=== PATIENT | female | born 1940 | race African-American/Black ===

== ENCOUNTER 2021-02-07 20:14 | Inpatient (IN) ==
[2021-02-07] MEDS ORDERED: ONDANSETRON 4 MG/2 ML VIAL IV STA (23:38)
[2021-02-07] MEDS ORDERED: SODIUM CHLORIDE 0.9% 1,000 ML IV STA (23:38)
[2021-02-08 01:08] LABS: Basophils % 0.2 % (0.0-0.8); Hemoglobin 14.5 GM/DL (12.0-16.0); Immature Granulocytes % 0.5 %; Immature Granulocytes Absolute 0.07 #; Lymphocytes # 1.6 10*3/uL (1.4-4.0); Mean Corpuscular HGB Conc 33.7 GM/DL (32-36); Mean Corpuscular Volume 87.9 FL (87-102); Mean Platelet Volume 11.8 FL (9.6-12.0); Monocytes % 6.5 % (1.7-12.7); Neutrophils % 80.8 % (38.7-73.9); Platelet Count 334 T/CUMM (130-400); Red Blood Count 4.89 MC/CUMM (3.8-5.5); Red Cell Distribution Width 13.4 % (9.3-17.3); White Blood Count 13.3 T/CUMM (4-12)
[2021-02-08 01:37] LABS: Albumin 4.8 G/DL (3.4-5.0); Amylase 145 U/L (25-115); Bilirubin,Total 1.9 MG/DL (0.20-1.00); Calcium 10.1 MG/DL (8.5-10.1); Potassium 4.5 MMOL/L (3.5-5.1); Total Protein 9.1 G/DL (6.4-8.2)
[2021-02-08] MEDS ORDERED: ONDANSETRON 4 MG/2 ML VIAL IV PRN (04:27)
[2021-02-08] MEDS ORDERED: HYDROmorphone 2 MG/1 ML VIAL IV PRN (04:27)
[2021-02-08] MEDS ORDERED: ACETAMINOPHEN 325 MG TABLET PO PRN (04:27)
[2021-02-08] MEDS ORDERED: SODIUM CHLORIDE 0.9% 1,000 ML IV SCH ×2 (05:00→09:00)
[2021-02-08] MEDS ORDERED: PIPERACILLIN/TAZOBACTAM 3,375 MG in SODIUM CHLORIDE 0.9% 100 ML IV SCH (08:00)
[2021-02-08] MEDS: HYDROmorphone 2 MG/1 ML VIAL IV PRN (09:40)
[2021-02-08] MEDS: ONDANSETRON 4 MG/2 ML VIAL IV PRN ×2 (09:42→18:17)
[2021-02-08] MEDS: PANTOPRAZOLE 40 MG VIAL IV SCH (09:43)
[2021-02-08] MEDS: SODIUM CHLORIDE 0.9% 1,000 ML IV SCH ×3 (10:45→20:24)
[2021-02-08] MEDS ORDERED: ENOXAPARIN 30 MG/0.3 ML SYRINGE SUBCUT SCH (21:00)
[2021-02-09] MEDS: SODIUM CHLORIDE 0.9% 1,000 ML IV SCH ×2 (01:49→08:15)
[2021-02-09] MEDS: ONDANSETRON 4 MG/2 ML VIAL IV PRN ×2 (03:19→09:53)
[2021-02-09] MEDS: HYDROmorphone 2 MG/1 ML VIAL IV PRN ×3 (03:20→21:40)
[2021-02-09 03:36] LABS: Bilirubin,Urine Negative (Negative); Blood, Urine Negative (Negative); Glucose,Urine (UA) Negative (Negative); Hyaline Casts,Urine 1 /LPF (0-3); Ketones,Urine 20 mg/dL (Negative); Mucus,Urine Occasional /LPF (Occasional); Nitrite,Urine Negative (Negative); Protein,Urine Negative; RBC,Urine 4 /HPF (0-4); Squamous Epithelial Cell,Urine Occasional /HPF (0-10); Urine Appearance CLEAR (Clear); Urine Color Yellow (Yellow); Urine Specific Gravity 1.009 (1.001-1.035); Urine Urobilinogen < 2.0 EU/DL (0.2-1.0)
[2021-02-09 04:42] LABS: Basophils % 0.2 % (0.0-0.8); Eosinophils % 0.5 % (0.00-10.9); Hematocrit 30.5 VOL% (35.7-47.0); Hemoglobin 10.1 GM/DL (12.0-16.0); Immature Granulocytes % 0.4 %; Immature Granulocytes Absolute 0.03 #; Lymphocytes # 1.2 10*3/uL (1.4-4.0); Lymphocytes % 14.7 % (21.3-54.2); Mean Corpuscular HGB Conc 33.1 GM/DL (32-36); Mean Corpuscular Volume 91.9 FL (87-102); Mean Platelet Volume 11.8 FL (9.6-12.0); Monocytes % 7.9 % (1.7-12.7); Neutrophils % 76.3 % (38.7-73.9); Platelet Count 203 T/CUMM (130-400); Red Blood Count 3.32 MC/CUMM (3.8-5.5); White Blood Count 8.3 T/CUMM (4-12)
[2021-02-09 05:04] LABS: Calcium 8.4 MG/DL (8.5-10.1); Osmolality,Calculated 301.9 MOS/KG (273-304); Potassium 3.3 MMOL/L (3.5-5.1)
[2021-02-09] MEDS: PANTOPRAZOLE 40 MG VIAL IV SCH (08:12)
[2021-02-09] MEDS: DEXT 5% NACL 0.45% KCL 40 MEQ 40 MEQ/1,000 ML BAG IV SCH ×2 (13:46→21:39)
[2021-02-10] MEDS: HYDROmorphone 2 MG/1 ML VIAL IV PRN ×3 (04:07→23:23)
[2021-02-10] MEDS: ONDANSETRON 4 MG/2 ML VIAL IV PRN ×2 (04:07→16:07)
[2021-02-10] MEDS: DEXT 5% NACL 0.45% KCL 40 MEQ 40 MEQ/1,000 ML BAG IV SCH (04:37)
[2021-02-10 06:09] LABS: Basophils % 0.3 % (0.0-0.8); Eosinophils # 0.1 10*3/uL (0.0-0.87); Eosinophils % 1.1 % (0.00-10.9); Hematocrit 28.8 VOL% (35.7-47.0); Hemoglobin 9.2 GM/DL (12.0-16.0); Immature Granulocytes % 0.3 %; Immature Granulocytes Absolute 0.02 #; Lymphocytes # 1.3 10*3/uL (1.4-4.0); Lymphocytes % 20.1 % (21.3-54.2); Mean Corpuscular HGB Conc 31.9 GM/DL (32-36); Mean Corpuscular Volume 93.2 FL (87-102); Mean Platelet Volume 11.2 FL (9.6-12.0); Monocytes % 10.4 % (1.7-12.7); Neutrophils % 67.8 % (38.7-73.9); Platelet Count 184 T/CUMM (130-400); Red Blood Count 3.09 MC/CUMM (3.8-5.5); Red Cell Distribution Width 14.5 % (9.3-17.3); White Blood Count 6.3 T/CUMM (4-12)
[2021-02-10 06:28] LABS: Calcium 8.2 MG/DL (8.5-10.1); Osmolality,Calculated 302.7 MOS/KG (273-304); Potassium 4.1 MMOL/L (3.5-5.1)
[2021-02-10] MEDS: POTASSIUM CHLORIDE INJ 10 MEQ in DEXTROSE 5% NACL 0.22% 1,000 ML IV SCH ×2 (08:39→16:11)
[2021-02-10] MEDS: PANTOPRAZOLE 40 MG VIAL IV SCH (08:41)
[2021-02-10] MEDS: BISACODYL 5 MG TABLET PO SCH ×2 (08:44→16:08)
[2021-02-10] MEDS: METOCLOPRAMIDE 10 MG/2 ML VIAL IV SCH ×2 (11:24→17:58)
[2021-02-10] MEDS ORDERED: POLYETHYLENE GLYCOL POWDER 255 GM BOTTLE PO ONE (18:00)
[2021-02-10] MEDS ORDERED: MAGNESIUM CITRATE 300 ML BOTTLE PO ONE (21:00)
[2021-02-11] MEDS: METOCLOPRAMIDE 10 MG/2 ML VIAL IV SCH ×4 (00:23→17:39)
[2021-02-11] MEDS: POTASSIUM CHLORIDE INJ 10 MEQ in DEXTROSE 5% NACL 0.22% 1,000 ML IV SCH ×3 (00:23→17:36)
[2021-02-11] MEDS: BISACODYL 5 MG TABLET PO SCH (00:27)
[2021-02-11] MEDS: ONDANSETRON 4 MG/2 ML VIAL IV PRN (06:28)
[2021-02-11 06:51] LABS: Albumin 2.9 G/DL (3.4-5.0); Bilirubin,Direct 0.2 MG/DL (0.0-0.20); Bilirubin,Indirect 1.6 MG/DL (0.0-1.0); Bilirubin,Total 1.8 MG/DL (0.20-1.00)
[2021-02-11 08:00] LABS: Calcium 8.9 MG/DL (8.5-10.1); Osmolality,Calculated 275.5 MOS/KG (273-304); Potassium 4.4 MMOL/L (3.5-5.1)
[2021-02-11] MEDS: PANTOPRAZOLE 40 MG VIAL IV SCH (08:57)
[2021-02-11] MEDS ORDERED: LIDOCAINE 2% 5 ML VIAL ONE (15:42)
[2021-02-11] MEDS ORDERED: propofoL 200 MG/20 ML VIAL IV ONE (15:42)
[2021-02-11] MEDS ORDERED: SODIUM CHLORIDE 0.9% 100 ML IV ONE (15:52)
[2021-02-11] MEDS ORDERED: ePHEDrine 50 MG/ML VIAL ONE (15:52)
[2021-02-11] MEDS ORDERED: PHENYLEPHRINE 10 MG/1 ML VIAL IV ONE (15:54)
[2021-02-11] MEDS ORDERED: SEVOFLURANE 1 UNIT/15 MINUTE INH ONE ×2 (16:14→16:27)
[2021-02-11] MEDS ORDERED: SUCCINYLCHOLINE 200 MG/10 ML VIAL ONE (16:14)
[2021-02-11] MEDS ORDERED: MIDAZOLAM 2 MG/2 ML VIAL ONE (16:20)
[2021-02-11] MEDS: SODIUM CHLORIDE 0.9% 1,000 ML IV SCH (17:07)
[2021-02-11 17:22] LABS: Bacteria,Urine Occasional /HPF (Few); Bilirubin,Urine Negative (Negative); Blood, Urine Negative (Negative); Glucose,Urine (UA) Negative (Negative); Hyaline Casts,Urine 1 /LPF (0-3); Ketones,Urine Negative (Negative); Mucus,Urine Few /LPF (Occasional); Nitrite,Urine Negative (Negative); Protein,Urine Negative; RBC,Urine 1 /HPF (0-4); Squamous Epithelial Cell,Urine Occasional /HPF (0-10); Urine Appearance CLEAR (Clear); Urine Color Yellow (Yellow); Urine Specific Gravity 1.008 (1.001-1.035); Urine Urobilinogen < 2.0 EU/DL (0.2-1.0)
[2021-02-11 17:31] LABS: ABG Base Excess -8.5 MMOL/L (-2.5-2.5); ABG HCO3 17.7 MMOL/L (20-26); ABG PCO2 27.1 MM HG (35-48); ABG PH 7.368 (7.35-7.45)
[2021-02-11] MEDS ORDERED: SODIUM CHLORIDE 0.9% 500 ML IV ONE (19:54)
[2021-02-11] MEDS ORDERED: METOPROLOL TARTRATE 5 MG/5 ML VIAL IV ONE (19:54)
[2021-02-11] MEDS ORDERED: MIDAZOLAM 2 MG/2 ML VIAL IV PRN (20:41)
[2021-02-11] MEDS: cefOXitin 1,000 MG in SODIUM CHLORIDE 0.9% 100 ML IV SCH (21:21)
[2021-02-11] MEDS: HYDROmorphone 2 MG/1 ML VIAL IV PRN (23:04)
[2021-02-11] MEDS ORDERED: PHENYLEPHRINE DRIP 40 MG/250 ML PREMIX IV ONE (23:21)
[2021-02-11] MEDS: PHENYLEPHRINE DRIP 40 MG/250 ML PREMIX IV PRN (23:23)
[2021-02-12 00:10] LABS: Basophils % 0.5 % (0.0-0.8); Hematocrit 40.1 VOL% (35.7-47.0); Hemoglobin 12.1 GM/DL (12.0-16.0); Immature Granulocytes % 0.7 %; Immature Granulocytes Absolute 0.04 #; Lymphocytes # 0.6 10*3/uL (1.4-4.0); Lymphocytes % 10.5 % (21.3-54.2); Mean Corpuscular HGB Conc 30.2 GM/DL (32-36); Mean Corpuscular Volume 100.8 FL (87-102); Mean Platelet Volume 10.8 FL (9.6-12.0); Monocytes % 6.7 % (1.7-12.7); Neutrophils % 81.6 % (38.7-73.9); Platelet Count 126 T/CUMM (130-400); Red Blood Count 3.98 MC/CUMM (3.8-5.5); Red Cell Distribution Width 14.4 % (9.3-17.3)
[2021-02-12] MEDS: METOCLOPRAMIDE 10 MG/2 ML VIAL IV SCH ×4 (00:25→18:12)
[2021-02-12 01:16] LABS: Calcium 7.7 MG/DL (8.5-10.1); Osmolality,Calculated 265.5 MOS/KG (273-304); Potassium 4.5 MMOL/L (3.5-5.1)
[2021-02-12] MEDS ORDERED: MAGNESIUM SULF RIDER 4 GM/100 ML PREMIX IV PRN (01:30)
[2021-02-12] MEDS: MAGNESIUM SULF RIDER 2 GM/50 ML PREMIX IV PRN ×2 (01:42→03:07)
[2021-02-12] MEDS: POTASSIUM CHLORIDE INJ 10 MEQ in DEXTROSE 5% NACL 0.22% 1,000 ML IV SCH ×3 (02:02→18:10)
[2021-02-12 03:11] LABS: Band Neutrophils 7 % (0-10); Lymphocytes 11 % (20-55); Platelet Estimate Adequate; Segmented Neutrophils 79 % (50-85); Total Cells Counted 100
[2021-02-12 03:20] LABS: Macrocytosis 1+; Polychromasia Slight
[2021-02-12] MEDS ORDERED: MIDAZOLAM 100 MG in SODIUM CHLORIDE 0.9% 80 ML IV PRN (03:52)
[2021-02-12 04:18] LABS: ABG HCO3 14.4 MMOL/L (20-26); ABG Oxygen Saturation 99.7 % (95-100); ABG PCO2 25.8 MM HG (35-48); ABG TCO2 11.3 MMOL/L (23-27)
[2021-02-12] MEDS: cefOXitin 1,000 MG in SODIUM CHLORIDE 0.9% 100 ML IV SCH ×3 (05:31→21:13)
[2021-02-12 06:27] LABS: Basophils % 0.1 % (0.0-0.8); Hematocrit 34.2 VOL% (35.7-47.0); Hemoglobin 10.9 GM/DL (12.0-16.0); Immature Granulocytes % 0.7 %; Immature Granulocytes Absolute 0.11 #; Lymphocytes # 1.2 10*3/uL (1.4-4.0); Lymphocytes % 7.3 % (21.3-54.2); Mean Corpuscular HGB Conc 31.9 GM/DL (32-36); Mean Platelet Volume 11.5 FL (9.6-12.0); Monocytes % 3.5 % (1.7-12.7); Neutrophils % 88.4 % (38.7-73.9); Platelet Count 153 T/CUMM (130-400); Red Blood Count 3.64 MC/CUMM (3.8-5.5); Red Cell Distribution Width 14.3 % (9.3-17.3); White Blood Count 16.8 T/CUMM (4-12)
[2021-02-12 06:41] LABS: Calcium 7.8 MG/DL (8.5-10.1)
[2021-02-12 07:04] LABS: Band Neutrophils 13 % (0-10); Lymphocytes 13 % (20-55); Metamyelocytes 2 %; Segmented Neutrophils 64 % (50-85); Total Cells Counted 100
[2021-02-12 07:10] LABS: Hypochromasia Slight
[2021-02-12 07:11] LABS: Microcytosis 1+; Platelet Estimate Adequate
[2021-02-12] MEDS: PHENYLEPHRINE DRIP 40 MG/250 ML PREMIX IV PRN ×2 (07:33→14:05)
[2021-02-12] MEDS: SODIUM CHLORIDE 0.9% 1,000 ML IV SCH (07:55)
[2021-02-12] MEDS: PANTOPRAZOLE 40 MG VIAL IV SCH (10:01)
[2021-02-12] MEDS: INSULIN LISPRO 100 UNIT/ML SUBCUT SCH ×2 (12:51→18:08)
[2021-02-13] MEDS: METOCLOPRAMIDE 10 MG/2 ML VIAL IV SCH ×4 (00:38→18:35)
[2021-02-13] MEDS: INSULIN LISPRO 100 UNIT/ML SUBCUT SCH ×4 (00:38→18:35)
[2021-02-13] MEDS: POTASSIUM CHLORIDE INJ 10 MEQ in DEXTROSE 5% NACL 0.22% 1,000 ML IV SCH ×3 (02:06→20:33)
[2021-02-13] MEDS: PHENYLEPHRINE DRIP 40 MG/250 ML PREMIX IV PRN ×2 (02:07→20:32)
[2021-02-13] MEDS: ONDANSETRON 4 MG/2 ML VIAL IV PRN (04:47)
[2021-02-13] MEDS: cefOXitin 1,000 MG in SODIUM CHLORIDE 0.9% 100 ML IV SCH ×3 (05:31→21:07)
[2021-02-13 06:20] LABS: Basophils % 0.2 % (0.0-0.8); Hematocrit 32.2 VOL% (35.7-47.0); Hemoglobin 10.8 GM/DL (12.0-16.0); Immature Granulocytes % 7.9 %; Immature Granulocytes Absolute 1.91 #; Mean Corpuscular HGB Conc 33.5 GM/DL (32-36); Mean Platelet Volume 12.4 FL (9.6-12.0); Monocytes % 3.4 % (1.7-12.7); Neutrophils % 84.5 % (38.7-73.9); Platelet Count 105 T/CUMM (130-400); Red Blood Count 3.62 MC/CUMM (3.8-5.5); Red Cell Distribution Width 14.5 % (9.3-17.3); White Blood Count 24.2 T/CUMM (4-12)
[2021-02-13 06:41] LABS: Band Neutrophils 10 % (0-10); Lymphocytes 5 % (20-55); Segmented Neutrophils 76 % (50-85); Total Cells Counted 100
[2021-02-13 06:42] LABS: Hypochromasia 1+; Microcytosis 1+; Ovalocytes Slight
[2021-02-13 06:43] LABS: Platelet Estimate Decreased
[2021-02-13 06:46] LABS: Osmolality,Calculated 279.7 MOS/KG (273-304); Potassium 3.2 MMOL/L (3.5-5.1)
[2021-02-13 06:51] LABS: Albumin 2.3 G/DL (3.4-5.0); Calcium 7.9 MG/DL (8.5-10.1); Potassium 3.1 MMOL/L (3.5-5.1); Total Protein 5.3 G/DL (6.4-8.2)
[2021-02-13] MEDS ORDERED: LIDOCAINE 2% 5 ML VIAL ONE (09:34)
[2021-02-13] MEDS ORDERED: ROCURONIUM 50 MG/5 ML VIAL IV ONE (09:34)
[2021-02-13] MEDS ORDERED: SUCCINYLCHOLINE 200 MG/10 ML VIAL ONE (09:34)
[2021-02-13] MEDS ORDERED: propofoL 200 MG/20 ML VIAL IV ONE (09:34)
[2021-02-13] MEDS ORDERED: fentaNYL 100 MCG/2 ML VIAL ONE (09:35)
[2021-02-13] MEDS ORDERED: MIDAZOLAM 2 MG/2 ML VIAL ONE (09:36)
[2021-02-13] MEDS: PANTOPRAZOLE 40 MG VIAL IV SCH (09:40)
[2021-02-13] MEDS: SODIUM CHLORIDE 0.9% 1,000 ML IV SCH (09:57)
[2021-02-13] MEDS ORDERED: ALBUMIN 5% 12.5 GM/250 ML VIAL IV ONE (10:09)
[2021-02-13] MEDS ORDERED: PHENYLEPHRINE 1 MG/10 ML SYRINGE IV ONE (10:34)
[2021-02-13] MEDS ORDERED: NEOSTIGMINE 10 MG/10 ML VIAL ONE (10:56)
[2021-02-13] MEDS ORDERED: GLYCOPYRROLATE 0.4 MG/2 ML VIAL ONE (10:57)
[2021-02-13] MEDS ORDERED: SUGAMMADEX 200 MG/2 ML VIAL IV ONE (11:00)
[2021-02-13 11:50] LABS: ABG Base Excess -7.1 MMOL/L (-2.5-2.5); ABG HCO3 18.5 MMOL/L (20-26); ABG Oxygen Saturation 89.6 % (95-100); ABG PCO2 27.5 MM HG (35-48); ABG PH 7.389 (7.35-7.45); ABG PO2 56.3 MM HG (80-95); Pt O2 Delivery Device Other
[2021-02-13] MEDS ORDERED: SEVOFLURANE 1 UNIT/15 MINUTE INH ONE ×5 (12:30)
[2021-02-13] MEDS: HYDROmorphone 2 MG/1 ML VIAL IV PRN ×3 (12:57→22:06)
[2021-02-14] MEDS: METOCLOPRAMIDE 10 MG/2 ML VIAL IV SCH ×4 (00:31→18:38)
[2021-02-14] MEDS: POTASSIUM CHLORIDE INJ 10 MEQ in DEXTROSE 5% NACL 0.22% 1,000 ML IV SCH ×2 (02:47→05:28)
[2021-02-14] MEDS: cefOXitin 1,000 MG in SODIUM CHLORIDE 0.9% 100 ML IV SCH ×3 (04:26→21:23)
[2021-02-14 04:27] LABS: Basophils # 0.1 10*3/uL (0.0-0.2); Basophils % 0.7 % (0.0-0.8); Eosinophils % 0.1 % (0.00-10.9); Hematocrit 26.7 VOL% (35.7-47.0); Immature Granulocytes % 0.2 %; Immature Granulocytes Absolute 0.03 #; Mean Corpuscular HGB Conc 33.7 GM/DL (32-36); Mean Corpuscular Volume 89.3 FL (87-102); Monocytes % 2.5 % (1.7-12.7); Neutrophils % 89.5 % (38.7-73.9); Platelet Count 58 T/CUMM (130-400); Red Blood Count 2.99 MC/CUMM (3.8-5.5); Red Cell Distribution Width 14.6 % (9.3-17.3); White Blood Count 14.6 T/CUMM (4-12)
[2021-02-14 04:39] LABS: Calcium 7.4 MG/DL (8.5-10.1); Osmolality,Calculated 266.4 MOS/KG (273-304); Potassium 3.5 MMOL/L (3.5-5.1)
[2021-02-14 04:45] LABS: ABG Base Excess -6.9 MMOL/L (-2.5-2.5); ABG HCO3 18.8 MMOL/L (20-26); ABG PCO2 35.7 MM HG (35-48); ABG PH 7.322 (7.35-7.45); ABG TCO2 16.8 MMOL/L (23-27); Allen Test Positive; Pt O2 Delivery Device Ventilator
[2021-02-14 04:47] LABS: Band Neutrophils 1 % (0-10); Lymphocytes 7 % (20-55); Segmented Neutrophils 87 % (50-85); Total Cells Counted 100
[2021-02-14 04:48] LABS: Microcytosis Slight; Platelet Estimate Decreased
[2021-02-14] MEDS: INSULIN LISPRO 100 UNIT/ML SUBCUT SCH ×4 (05:16→17:50)
[2021-02-14] MEDS: SODIUM CHLORIDE 0.9% 1,000 ML IV SCH (06:59)
[2021-02-14] MEDS: PANTOPRAZOLE 40 MG VIAL IV SCH (09:18)
[2021-02-14] MEDS: PHENYLEPHRINE DRIP 40 MG/250 ML PREMIX IV PRN (09:32)
[2021-02-14] MEDS: POTASSIUM CHLORIDE INJ 30 MEQ in LACTATED RINGERS 1,000 ML IV SCH ×2 (10:30→21:23)
[2021-02-14 11:48] LABS: Basophils % 0.2 % (0.0-0.8); Eosinophils % 0.1 % (0.00-10.9); Hematocrit 29.8 VOL% (35.7-47.0); Hemoglobin 9.9 GM/DL (12.0-16.0); Immature Granulocytes % 0.4 %; Immature Granulocytes Absolute 0.06 #; Lymphocytes # 0.9 10*3/uL (1.4-4.0); Lymphocytes % 5.2 % (21.3-54.2); Mean Corpuscular HGB Conc 33.2 GM/DL (32-36); Mean Corpuscular Volume 90.6 FL (87-102); Mean Platelet Volume 12.6 FL (9.6-12.0); Monocytes % 3.5 % (1.7-12.7); Neutrophils % 90.6 % (38.7-73.9); Platelet Count 55 T/CUMM (130-400); Red Blood Count 3.29 MC/CUMM (3.8-5.5); Red Cell Distribution Width 14.7 % (9.3-17.3); White Blood Count 16.7 T/CUMM (4-12)
[2021-02-14 12:09] LABS: Anisocytosis 1+; Band Neutrophils 13 % (0-10); Burr Cells 1+; Lymphocytes 2 % (20-55); Macrocytosis 1+; Platelet Estimate Decreased; Segmented Neutrophils 83 % (50-85); Total Cells Counted 100
[2021-02-14] MEDS: HYDROmorphone 2 MG/1 ML VIAL IV PRN ×2 (13:27→19:37)
[2021-02-15] MEDS: INSULIN LISPRO 100 UNIT/ML SUBCUT SCH ×4 (00:52→18:49)
[2021-02-15] MEDS: METOCLOPRAMIDE 10 MG/2 ML VIAL IV SCH ×2 (01:28→05:36)
[2021-02-15 04:08] LABS: Allen Test Positive
[2021-02-15 04:09] LABS: ABG Base Excess -2.2 MMOL/L (-2.5-2.5); ABG HCO3 21.8 MMOL/L (20-26); ABG Oxygen Saturation 95.9 % (95-100); ABG PH 7.425 (7.35-7.45); ABG PO2 82.7 MM HG (80-95); ABG TCO2 22.9 MMOL/L (23-27)
[2021-02-15 04:54] LABS: Basophils % 0.1 % (0.0-0.8); Eosinophils % 0.1 % (0.00-10.9); Hemoglobin 8.5 GM/DL (12.0-16.0); Immature Granulocytes % 0.4 %; Immature Granulocytes Absolute 0.04 #; Lymphocytes # 0.6 10*3/uL (1.4-4.0); Monocytes % 3.8 % (1.7-12.7); Neutrophils % 89.6 % (38.7-73.9); Red Blood Count 2.84 MC/CUMM (3.8-5.5); Red Cell Distribution Width 14.6 % (9.3-17.3); White Blood Count 9.2 T/CUMM (4-12)
[2021-02-15 05:09] LABS: Platelet Count 36 T/CUMM (130-400)
[2021-02-15 05:14] LABS: Albumin 1.7 G/DL (3.4-5.0); Bilirubin,Direct 0.16 MG/DL (0.0-0.20); Bilirubin,Total 1.1 MG/DL (0.20-1.00); Calcium 8.3 MG/DL (8.5-10.1); Lymphocytes 1 % (20-55); Microcytosis 1+; Osmolality,Calculated 276.4 MOS/KG (273-304); Segmented Neutrophils 93 % (50-85); Total Cells Counted 100; Total Protein 4.7 G/DL (6.4-8.2)
[2021-02-15 05:22] LABS: Platelet Estimate Decreased
[2021-02-15] MEDS: cefOXitin 1,000 MG in SODIUM CHLORIDE 0.9% 100 ML IV SCH ×3 (05:35→21:09)
[2021-02-15] MEDS: SODIUM CHLORIDE 0.9% 1,000 ML IV SCH (06:33)
[2021-02-15] MEDS ORDERED: SODIUM CHLORIDE 0.9% 1,000 ML IV PRN ×2 (06:42→07:05)
[2021-02-15] MEDS: FAMOTIDINE 20 MG/2 ML VIAL IV SCH ×2 (08:00→18:58)
[2021-02-15] MEDS: LACTATED RINGERS 1,000 ML IV SCH ×2 (08:00→19:25)
[2021-02-15] MEDS: POTASSIUM CHLORIDE INJ 30 MEQ in LACTATED RINGERS 1,000 ML IV SCH (08:35)
[2021-02-16 04:47] LABS: Basophils % 0.2 % (0.0-0.8); Eosinophils % 0.2 % (0.00-10.9); Hematocrit 28.1 VOL% (35.7-47.0); Hemoglobin 9.8 GM/DL (12.0-16.0); Immature Granulocytes % 1.6 %; Lymphocytes # 0.7 10*3/uL (1.4-4.0); Lymphocytes % 10.2 % (21.3-54.2); Mean Corpuscular HGB Conc 34.9 GM/DL (32-36); Mean Corpuscular Volume 84.4 FL (87-102); Mean Platelet Volume 10.9 FL (9.6-12.0); Monocytes % 6.7 % (1.7-12.7); Neutrophils % 81.1 % (38.7-73.9); Platelet Count 88 T/CUMM (130-400); Red Blood Count 3.33 MC/CUMM (3.8-5.5); Red Cell Distribution Width 14.3 % (9.3-17.3); White Blood Count 6.5 T/CUMM (4-12)
[2021-02-16] MEDS: LACTATED RINGERS 1,000 ML IV SCH ×3 (04:56→15:50)
[2021-02-16 05:02] LABS: Calcium 8.2 MG/DL (8.5-10.1); Potassium 3.1 MMOL/L (3.5-5.1)
[2021-02-16] MEDS: cefOXitin 1,000 MG in SODIUM CHLORIDE 0.9% 100 ML IV SCH ×3 (05:12→21:11)
[2021-02-16 05:22] LABS: Band Neutrophils 1 % (0-10); Eosinophils 1 % (0-10); Hypochromasia 1+; Lymphocytes 9 % (20-55); Microcytosis 1+; Segmented Neutrophils 81 % (50-85); Total Cells Counted 100
[2021-02-16 05:23] LABS: Platelet Estimate Decreased
[2021-02-16] MEDS: POTASSIUM CHLORIDE RIDER 10 MEQ/100 ML PREMIX IV PRN ×7 (05:36→20:23)
[2021-02-16] MEDS: MAGNESIUM SULF RIDER 2 GM/50 ML PREMIX IV PRN (05:37)
[2021-02-16] MEDS: FAMOTIDINE 20 MG/2 ML VIAL IV SCH ×2 (06:03→18:10)
[2021-02-17] MEDS: LACTATED RINGERS 1,000 ML IV SCH ×3 (02:39→21:35)
[2021-02-17 04:45] LABS: Basophils % 0.3 % (0.0-0.8); Eosinophils % 0.6 % (0.00-10.9); Hematocrit 28.2 VOL% (35.7-47.0); Hemoglobin 9.8 GM/DL (12.0-16.0); Immature Granulocytes % 1.8 %; Immature Granulocytes Absolute 0.12 #; Lymphocytes # 0.7 10*3/uL (1.4-4.0); Mean Corpuscular HGB Conc 34.8 GM/DL (32-36); Mean Corpuscular Volume 84.7 FL (87-102); Mean Platelet Volume 11.1 FL (9.6-12.0); Monocytes % 10.9 % (1.7-12.7); Neutrophils % 75.4 % (38.7-73.9); Platelet Count 68 T/CUMM (130-400); Red Blood Count 3.33 MC/CUMM (3.8-5.5); Red Cell Distribution Width 14.6 % (9.3-17.3); White Blood Count 6.7 T/CUMM (4-12)
[2021-02-17 05:10] LABS: Calcium 8.2 MG/DL (8.5-10.1); Osmolality,Calculated 276.4 MOS/KG (273-304); Potassium 3.7 MMOL/L (3.5-5.1)
[2021-02-17 05:22] LABS: Band Neutrophils 1 % (0-10); Hypochromasia 1+; Lymphocytes 14 % (20-55); Microcytosis 1+; Segmented Neutrophils 73 % (50-85); Total Cells Counted 100
[2021-02-17 05:23] LABS: Platelet Estimate Decreased
[2021-02-17] MEDS: FAMOTIDINE 20 MG/2 ML VIAL IV SCH ×2 (06:12→19:42)
[2021-02-17] MEDS: cefOXitin 1,000 MG in SODIUM CHLORIDE 0.9% 100 ML IV SCH ×3 (06:12→21:35)
[2021-02-18] MEDS: LACTATED RINGERS 1,000 ML IV SCH ×2 (02:05→06:01)
[2021-02-18 04:49] LABS: Basophils % 0.2 % (0.0-0.8); Eosinophils % 0.4 % (0.00-10.9); Hematocrit 28.5 VOL% (35.7-47.0); Hemoglobin 9.5 GM/DL (12.0-16.0); Immature Granulocytes % 0.7 %; Immature Granulocytes Absolute 0.06 #; Lymphocytes # 0.8 10*3/uL (1.4-4.0); Lymphocytes % 9.6 % (21.3-54.2); Mean Corpuscular HGB Conc 33.3 GM/DL (32-36); Mean Corpuscular Volume 85.6 FL (87-102); Mean Platelet Volume 11.9 FL (9.6-12.0); Monocytes % 12.2 % (1.7-12.7); Neutrophils % 76.9 % (38.7-73.9); Red Blood Count 3.33 MC/CUMM (3.8-5.5); Red Cell Distribution Width 14.4 % (9.3-17.3); White Blood Count 8.1 T/CUMM (4-12)
[2021-02-18 04:51] LABS: Platelet Count 75 T/CUMM (130-400)
[2021-02-18 05:14] LABS: Calcium 8.3 MG/DL (8.5-10.1); Osmolality,Calculated 275.4 MOS/KG (273-304); Potassium 3.5 MMOL/L (3.5-5.1)
[2021-02-18 05:15] LABS: Band Neutrophils 3 % (0-10); Hypochromasia 1+; Lymphocytes 6 % (20-55); Microcytosis 1+; Platelet Estimate Decreased; Segmented Neutrophils 87 % (50-85); Total Cells Counted 100
[2021-02-18] MEDS: FAMOTIDINE 20 MG/2 ML VIAL IV SCH ×2 (06:01→18:00)
[2021-02-18] MEDS: cefOXitin 1,000 MG in SODIUM CHLORIDE 0.9% 100 ML IV SCH ×3 (06:01→21:59)
[2021-02-18] MEDS ORDERED: GLUCAGON 1 MG VIAL IM PRN (06:37)
[2021-02-18] MEDS ORDERED: DEXTROSE 50% 25 GM/50 ML VIAL IV PRN (06:37)
[2021-02-18] MEDS: ENOXAPARIN 40 MG/0.4 ML SYRINGE SUBCUT SCH (08:18)
[2021-02-18] MEDS: POTASSIUM CHLORIDE RIDER 10 MEQ/100 ML PREMIX IV PRN ×3 (08:18→10:20)
[2021-02-18] MEDS: DEXT 5% NACL 0.45% KCL 40 MEQ 40 MEQ/1,000 ML BAG IV SCH ×2 (10:32→18:50)
[2021-02-18] MEDS: MIRTAZAPINE 15 MG TABLET PO SCH (21:52)
[2021-02-19] MEDS: cefOXitin 1,000 MG in SODIUM CHLORIDE 0.9% 100 ML IV SCH ×3 (05:01→20:56)
[2021-02-19] MEDS: DEXT 5% NACL 0.45% KCL 40 MEQ 40 MEQ/1,000 ML BAG IV SCH ×2 (05:03→18:10)
[2021-02-19] MEDS: FAMOTIDINE 20 MG/2 ML VIAL IV SCH ×2 (06:20→19:21)
[2021-02-19 06:40] LABS: Basophils % 0.1 % (0.0-0.8); Eosinophils % 0.3 % (0.00-10.9); Hematocrit 29.1 VOL% (35.7-47.0); Hemoglobin 9.9 GM/DL (12.0-16.0); Immature Granulocytes % 0.7 %; Immature Granulocytes Absolute 0.06 #; Lymphocytes % 11.7 % (21.3-54.2); Mean Corpuscular Volume 84.6 FL (87-102); Mean Platelet Volume 11.7 FL (9.6-12.0); Monocytes % 7.9 % (1.7-12.7); Neutrophils % 79.3 % (38.7-73.9); Platelet Count 68 T/CUMM (130-400); Red Blood Count 3.44 MC/CUMM (3.8-5.5); Red Cell Distribution Width 14.2 % (9.3-17.3); White Blood Count 8.8 T/CUMM (4-12)
[2021-02-19 06:55] LABS: Osmolality,Calculated 278.7 MOS/KG (273-304); Potassium 4.1 MMOL/L (3.5-5.1)
[2021-02-19 07:02] LABS: Band Neutrophils 1 % (0-10); Hypochromasia Slight; Lymphocytes 14 % (20-55); Platelet Estimate Decreased; Segmented Neutrophils 83 % (50-85); Total Cells Counted 100
[2021-02-19] MEDS: ENOXAPARIN 40 MG/0.4 ML SYRINGE SUBCUT SCH (08:46)
[2021-02-19] MEDS: MAGNESIUM SULF RIDER 2 GM/50 ML PREMIX IV PRN (08:46)
[2021-02-19] MEDS ORDERED: LACTATED RINGERS 1,000 ML IV SCH (09:00)
[2021-02-19] MEDS: MIRTAZAPINE 15 MG TABLET PO SCH (20:54)
[2021-02-20] MEDS: DEXT 5% NACL 0.45% KCL 40 MEQ 40 MEQ/1,000 ML BAG IV SCH ×2 (04:14→09:56)
[2021-02-20] MEDS: cefOXitin 1,000 MG in SODIUM CHLORIDE 0.9% 100 ML IV SCH ×2 (04:18→13:01)
[2021-02-20] MEDS: FAMOTIDINE 20 MG/2 ML VIAL IV SCH (06:20)
[2021-02-20 06:35] LABS: Basophils % 0.1 % (0.0-0.8); Eosinophils # 0.1 10*3/uL (0.0-0.87); Eosinophils % 0.7 % (0.00-10.9); Hematocrit 31.2 VOL% (35.7-47.0); Hemoglobin 10.5 GM/DL (12.0-16.0); Immature Granulocytes Absolute 0.08 #; Lymphocytes # 1.1 10*3/uL (1.4-4.0); Lymphocytes % 13.2 % (21.3-54.2); Mean Corpuscular HGB Conc 33.7 GM/DL (32-36); Mean Corpuscular Volume 85.5 FL (87-102); Mean Platelet Volume 12.3 FL (9.6-12.0); Monocytes % 9.1 % (1.7-12.7); Neutrophils % 75.9 % (38.7-73.9); Red Blood Count 3.65 MC/CUMM (3.8-5.5); Red Cell Distribution Width 14.4 % (9.3-17.3); White Blood Count 8.2 T/CUMM (4-12)
[2021-02-20 06:48] LABS: Platelet Count 72 T/CUMM (130-400)
[2021-02-20 06:59] LABS: Lymphocytes 8 % (20-55); Platelet Estimate Decreased; Segmented Neutrophils 85 % (50-85); Total Cells Counted 100
[2021-02-20 07:00] LABS: Hypochromasia 1+; Microcytosis 1+
[2021-02-20 07:05] LABS: Calcium 8.2 MG/DL (8.5-10.1)
[2021-02-20] MEDS ORDERED: FONDAPARINUX 2.5 MG/0.5 ML SYRINGE SUBCUT SCH (09:00)
[2021-02-20 11:21] VITALS: BP 105/59
== END 2021-02-20 16:36 | DRG 329 ==
LOC: N.ED 20:14 → N.2W 02-08 00:29 → N.EDINP 02-08 03:28 → N.2W 02-08 04:08 → N.ICU 02-11 16:27 → N.3E 02-18 18:10
PROVIDERS: ADMIT Surgery; ATTEND Surgery
PROC: COLONBX (2021-02-11 12:05)